=== PATIENT | male | born 1990 | race Hispanic/Latino ===

== ENCOUNTER 2019-01-19 08:35 | Emergency (ER) | payer SELFPAY ==
--- NOTE | 2019-01-19 09:17 | ER ---
Nurse's Notes [facility] Name: Esequiel Chao Age: 28 yrs Sex: Male : 1990 Arrival Date: 01/19/2019 Time: 08:39 Bed 7 Private MD: Diagnosis: right sacroilitis;lower back pain Presentation: 01/19 08:49 Presenting complaint: Patient states: i slipped on a wet floor like i was going to fall tw2 but i caught myself and i guess i twisted wrong so since then my back has been hurting, 3 days now and its keeping me from sleeping. Transition of care: patient was not received from another setting of care. Onset of symptoms was January 19, 2019. Risk Assessment: Do you want to hurt yourself or someone else? Patient reports no desire to harm self or others. Initial Sepsis Screen: Does the patient meet any 2 criteria? No. Patient's initial sepsis screen is negative. Does the patient have a suspected source of infection? No. Patient's initial sepsis screen is negative. Care prior to arrival: None. 08:49 Method Of Arrival: Ambulatory tw2 08:49 Acuity: CHRISTINE 4 tw2 Triage Assessment: 08:51 General: Appears in no apparent distress. Behavior is calm, cooperative, appropriate tw2 for age. Pain: Complains of pain in back. Musculoskeletal: Range of motion: intact in all extremities. Historical: - Allergies: 08:52 No Known Allergies; tw2 - Home Meds: 08:52 None [Active]; tw2 - PMHx: 08:52 None; tw2 - PSHx: 08:52 None; tw2 - Immunization history:: Adult Immunizations. - Social history:: Smoking status: . - Ebola Screening: : Patient denies travel to an Ebola-affected area in the 21 days before illness onset. Screenin:52 Abuse screen: Denies threats or abuse. Nutritional screening: No deficits noted. tw2 Tuberculosis screening: No symptoms or risk factors identified. Fall Risk None identified. Assessment: 08:45 General: Appears in no apparent distress. Behavior is calm, cooperative, appropriate tw2 for age. Pain: Complains of pain in back. Neuro: Level of Consciousness is awake, alert, obeys commands, Oriented to person, place, time, situation. Cardiovascular: Patient's skin is warm and dry. Respiratory: Airway is patent Respiratory effort is even, unlabored, Respiratory pattern is regular, symmetrical. GI: No signs and/or symptoms were reported involving the gastrointestinal system. : No signs and/or symptoms were reported regarding the genitourinary system. EENT: No signs and/or symptoms were reported regarding the EENT system. Derm: No signs and/or symptoms reported regarding the dermatologic system. Musculoskeletal: Circulation, motion, and sensation intact. Range of motion: intact in all extremities, Reports pain in back. 09:01 Reassessment: provider at bedside at this time. tw2 09:25 Reassessment: Patient appears in no apparent distress at this time. Patient and/or sg family updated on plan of care and expected duration. Pain level reassessed. Patient is alert, oriented x 3, equal unlabored respirations, skin warm/dry/pink. pt reports feeling better, ambulatory to ER lobby with steady gait, pt discharge to home with medications. Vital Signs: 08:51 BP 120 / 80; Pulse 83; Resp 18; Temp 97.8(TE); Pulse Ox 100% on R/A; Weight 79.38 kg tw2 (M); Pain 10/10; ED Course: 08:39 Patient arrived in ED. rg4 08:45 Bed in low position. Call light in reach. Adult w/ patient. tw2 08:[address] MD is Attending Physician. ps1 08:49 Carmen Grossman, HARVEY is Primary Nurse. tw2 08:51 Triage completed. tw2 08:51 Arm band placed on. tw2 09:01 served as real estate closing coordinator for adjustment at this time. tw2 09:24 Patient did not have IV access during this emergency room visit. tw2 Administered Medications: No medications were administered Outcome: 09:17 Discharge ordered by . ps1 09:24 Discharged to home ambulatory, with significant other. tw2 09:24 Condition: stable 09:24 Discharge instructions given to patient, significant other, Instructed on discharge instructions, follow up and referral plans. no drinking with medication, no driving heavy equipment, medication usage, Demonstrated understanding of instructions, follow-up care, medications, Prescriptions given X 2. 09:24 Patient left the ED. sg Signatures: Дмитрий Dias RN RN Carmen Grossman RN RN tw2 Gerda Hearn rg4 Sime[address] MD MD ps1
--- NOTE | 2019-01-19 09:17 | EDPHYS ---
Physician Documentation [facility] Name: Esequiel Chao Age: 28 yrs Sex: Male : 1990 Arrival Date: 01/19/2019 Time: 08:39 Bed 7 Private MD: ED Physician Simeon Lane HPI: 01/19 09:09 This 28 yrs old Male presents to ER via Ambulatory with complaints of Back ps1 Pain. 09:09 patient states that he nearly fell but caught himself prior to falling. Since then he ps1 has had spasm localized to the right lumbar region. Pain rated as moderate and worse with movement, specifically flexion. Pain does not radiate. No fever, patient is not immunocompromised. No urinary retention or urge incontinence. No FND or weakness. No numbness or functional impairment. . Historical: - Allergies: 08:52 No Known Allergies; tw2 - Home Meds: 08:52 None [Active]; tw2 - PMHx: 08:52 None; tw2 - PSHx: 08:52 None; tw2 - Immunization history:: Adult Immunizations. - Social history:: Smoking status: . - Ebola Screening: : Patient denies travel to an Ebola-affected area in the 21 days before illness onset. ROS: 09:09 Constitutional: Negative for fever, chills, and weight loss, Eyes: Negative for injury, ps1 pain, redness, and discharge, Cardiovascular: Negative for chest pain, palpitations, and edema, Respiratory: Negative for shortness of breath, cough, wheezing, and pleuritic chest pain, Abdomen/GI: Negative for abdominal pain, nausea, vomiting, diarrhea, and constipation, MS/Extremity: Negative for injury and deformity, Skin: Negative for injury, rash, and discoloration, Neuro: Negative for headache, weakness, numbness, tingling, and seizure. 09:09 Back: Positive for of the right low back, paraspinal spasm. Exam: 09:09 Constitutional: This is a well developed, well nourished patient who is awake, alert, ps1 and in no acute distress. Head/Face: Normocephalic, atraumatic. Eyes: Pupils equal round and reactive to light, extra-ocular motions intact. Lids and lashes normal. Conjunctiva and sclera are non-icteric and not injected. Chest/axilla: Normal chest wall appearance and motion. Nontender with no deformity. No lesions are appreciated. Cardiovascular: Regular rate and rhythm. No gallops, murmurs, or rubs. Normal PMI, no JVD. No pulse deficits. Respiratory: Lungs have equal breath sounds bilaterally, clear to auscultation and percussion. No rales, rhonchi or wheezes noted. No increased work of breathing, no retractions or nasal flaring. MS/ Extremity: Pulses equal, no cyanosis. Neurovascular intact. Full, normal range of motion. Neuro: Awake and alert, GCS 15, oriented to person, place, time, and situation. Cranial nerves II-XII grossly intact. Sensory grossly intact. 09:09 Back: pain, that is moderate, ROM is decreased, with flexion, CVA tenderness, is absent, muscle spasm, is appreciated in the right mid back and right low back. Vital Signs: 08:51 BP 120 / 80; Pulse 83; Resp 18; Temp 97.8(TE); Pulse Ox 100% on R/A; Weight 79.38 kg tw2 (M); Pain 10/10; MDM: 09:09 Data reviewed: vital signs, nurses notes. Counseling: I had a detailed discussion with ps1 the patient and/or guardian regarding: the historical points, exam findings, and any diagnostic results supporting the discharge/admit diagnosis, to return to the emergency department if symptoms worsen or persist or if there are any questions or concerns that arise at home. Response to treatment: the patient's symptoms have markedly improved after treatment, and as a result, I will discharge patient. ED course: patient examined in prone and supine position. Right leg length discrepancy with anteriorly rotated hip. Compensatory changes of lumbar and thoracic spine. HVLA performed and patient had marked relief of his pain. Ambulatory and ROM improved after procedure. . 09:17 Patient medically screened. ps1 Administered Medications: No medications were administered Disposition: 01/19/19 09:17 Discharged to Home. Impression: right sacroilitis, lower back pain. - Condition is Stable. - Discharge Instructions: Back Pain, Adult. - Prescriptions for Anaprox DS 550 mg Oral Tablet - take 1 tablet by ORAL route every 12 hours As needed; 20 tablet. Robaxin 500 mg Oral Tablet - take 2 tablet by ORAL route every 6 hours As needed; 40 tablet. - Work release form, Family Work Release, Medication Reconciliation Form, Thank You Letter, Antibiotic Education, Prescription Opioid Use form. - Follow up: Emergency Department; When: As needed; Reason: Worsening of condition. Follow up: Private Physician; When: 7 - 10 days; Reason: Further diagnostic work-up, Recheck today's complaints, Continuance of care. - Problem is new. - Symptoms have improved. Signatures: Дмитрий Dias RN RN sg Carmen Grossman RN RN tw2 Simeon Lane MD MD ps1 Corrections: (The following items were deleted from the chart) 09:24 09:17 01/19/2019 09:17 Discharged to Home. Impression: right sacroilitis; lower back sg pain. Condition is Stable. Forms are Work release form, Family Work Release, Medication Reconciliation Form, Thank You Letter, Antibiotic Education, Prescription Opioid Use. Follow up: Emergency Department; When: As needed; Reason: Worsening of condition. Follow up: Private Physician; When: 7 - 10 days; Reason: Further diagnostic work-up, Recheck today's complaints, Continuance of care. Problem is new. Symptoms have improved. ps1
[2019-01-19 09:30] VITALS: BP 120/80; TEMP 97.8; O2SAT 100
== END 2019-01-19 09:24 | disposition home or self-care (01) ==
LOC: ER 08:35
DX: M46.1 Sacroiliitis, not elsewhere classified (principal)
CPT/HCPCS: 99282

== ENCOUNTER 2019-05-16 10:23 | Emergency (ER) | payer BC ==
[2019-05-16 11:14] LABS: Absolute Lymphocytes (CBC) 1.8 K/uL (0.7-4.9); Basophils % 0.8 % (0-1.3); Hematocrit 40.4 % (39.6-49.0); Lymphocytes % 32.7 % (15.3-44.8); RBC Red Blood Cell Count 4.51 M/uL (4.33-5.43)
[2019-05-16 11:35] LABS: ALT/SGPT 16 U/L (12-78); AST/SGOT 8 U/L (15-37); Albumin 3.8 g/dL (3.4-5.0); Alkaline Phosphatase 41 U/L (45-117); BUN Blood Urea Nitrogen 11 mg/dL (7-18); Bicarbonate 29 mmol/L (21-32); Bilirubin Direct 0.1 mg/dL (0-0.2); Bilirubin Total 0.4 mg/dL (0.2-1.0); Glucose Level 88 mg/dL (74-106); Lipase 107 U/L (73-393); Protein, Total 7.4 g/dL (6.4-8.2); Sodium Level 141 mmol/L (136-145)
[2019-05-16] MEDS ORDERED: ONDANSETRON 4 MG/2 ML VIAL ONE (11:36)
[2019-05-16] MEDS ORDERED: MORPHINE 4 MG/ML SYR ONE (11:36)
[2019-05-16] MEDS ORDERED: NA CHLORIDE 0.9% 1,000 ML ONE (11:37)
--- NOTE | 2019-05-16 11:50 | RAD REPORT ---
EXAM DESCRIPTION: CT - Abdomen Pelvis W Contrast - 05/16/2019 11:32 am CLINICAL HISTORY: ABD PAIN, pain with bowel movement COMPARISON: No comparisons TECHNIQUE: Biphasic, helical CT imaging of the abdomen and pelvis was performed following 100 ml non -ionic IV contrast. No oral contrast was given. All CT scans are performed using dose optimization technique as appropriate and may include automated exposure control or mA/KV adjustment according to patient size. FINDINGS: No suspicious findings in the lung bases. The liver, spleen, and pancreas show no suspicious findings. Gallbladder and biliary tree are also wi thout suspicious finding. Symmetric renal function is seen with no hydronephrosis or suspicious renal mass. No pyelonephritis o r acute parenchymal process. No bladder abnormalities. No adrenal abnormalities. Stomach and small bowel show no suspicious findings. No colon dilatation or wall thickening. Specific ally, no rectal wall abnormality seen. The perirectal and perianal soft tissue show no edema or stran ding. No perirectal abscess or edema of the perineum. No free air, free fluid or inflammatory stranding. No hernia, mass or bulky lymphadenopathy. No suspicious bony findings. IMPRESSION: Contrast enhanced CT abdomen and pelvis showing no significant or suspicious finding. Specifically, no abnormality in the perianal or perirectal regions as an etiology for painful bowel m ovement.
--- NOTE | 2019-05-16 12:03 | EDPHYS ---
Physician Documentation [facility] Name: Esequiel Chao Age: 28 yrs Sex: Male : 1990 Arrival Date: 05/16/2019 Time: 10:24 Bed 28 Private MD: VICENTE Physician Adrian Jones HPI: 05/15 10:59 This 28 yrs old Male presents to ER via Ambulatory with complaints of pm1 Abdominal Pain. 10:59 The patient presents with abdominal pain in the left upper quadrant. Onset: The pm1 symptoms/episode began/occurred 2 week(s) ago. The symptoms do not radiate. Associated signs and symptoms: Pertinent positives: blood in stools, Pertinent negatives: nausea, vomiting, and diarrhea, chest pain, constipation, dysuria, fever, headache, shortness of breath. The symptoms are described as sharp. Modifying factors: The symptoms are alleviated by nothing, the symptoms are aggravated by food, bowel movement. Severity of pain: in the emergency department the pain is actually worse. The patient has been recently seen by a physician: the patient's primary care provider, same complaint 1 week ago and was referred to GI. Historical: - Allergies: 11:09 No Known Allergies; ss - Immunization history:: Adult Immunizations up to date. ROS: 11:13 Constitutional: Negative for fever, chills, and weight loss, Cardiovascular: Negative pm1 for chest pain, palpitations, and edema, Respiratory: Negative for shortness of breath, cough, wheezing, and pleuritic chest pain. 11:13 Back: Negative for injury and pain, MS/Extremity: Negative for injury and deformity, Skin: Negative for injury, rash, and discoloration, Neuro: Negative for headache, weakness, numbness, tingling, and seizure. 11:13 Abdomen/GI: Positive for abdominal pain, rectal pain, rectal bleeding, Negative for nausea, vomiting, and diarrhea. Exam: 11:13 Constitutional: This is a well developed, well nourished patient who is awake, alert, pm1 and in no acute distress. Head/Face: Normocephalic, atraumatic. Chest/axilla: Normal chest wall appearance and motion. Nontender with no deformity. No lesions are appreciated. Cardiovascular: Regular rate and rhythm with a normal S1 and S2. No gallops, murmurs, or rubs. No pulse deficits. Respiratory: Lungs have equal breath sounds bilaterally, clear to auscultation and percussion. No rales, rhonchi or wheezes noted. No increased work of breathing, no retractions or nasal flaring. Abdomen/GI: Soft, non-tender, with normal bowel sounds. No distension or tympany. No guarding or rebound. No evidence of tenderness throughout. Back: No spinal tenderness. No costovertebral tenderness. Full range of motion. MS/ Extremity: Pulses equal, no cyanosis. Neurovascular intact. Full, normal range of motion. 11:13 Abdomen/GI: Rectal exam: the exam is deferred, Patient refused. Reports painful with exam by PCP one week ago for the same complaint. 11:13 Neuro: Orientation: is normal, Motor: is normal, moves all fours, Gait: is steady, at a normal pace, without difficulty. Vital Signs: 10:31 BP 122 / 80; Pulse 74; Resp 18; Temp 97.2(TE); Pulse Ox 100% on R/A; Weight 81.65 kg; ss Height 5 ft. 10 in. (177.80 cm); Pain 10/10; 10:31 Body Mass Index 25.83 (81.65 kg, 177.80 cm) ss MDM: 10:35 Patient medically screened. pm1 11:15 Data reviewed: vital signs. Data interpreted: Pulse oximetry: on room air is 100 %. pm1 Interpretation: normal. 12:01 Counseling: I had a detailed discussion with the patient and/or guardian regarding: the pm1 historical points, exam findings, and any diagnostic results supporting the discharge/admit diagnosis, lab results, radiology results, the need for outpatient follow up, to return to the emergency department if symptoms worsen or persist or if there are any questions or concerns that arise at home. 05/15 10:44 Order name: Basic Metabolic Panel; Complete Time: 11:38 pm1 05/15 10:44 Order name: CBC with Diff; Complete Time: 11:18 pm1 05/15 10:44 Order name: Creatinine for Radiology; Complete Time: 11:38 pm1 05/15 10:44 Order name: Hepatic Function; Complete Time: 11:38 pm1 05/15 10:44 Order name: Lipase; Complete Time: 11:38 pm1 05/15 11:58 Order name: Urine Dipstick--Ancillary (enter results); Complete Time: 12:30 eb 05/15 10:44 Order name: IV Saline Lock; Complete Time: 11:40 pm1 05/15 10:44 Order name: Labs collected and sent; Complete Time: 11:40 pm1 05/15 10:44 Order name: CT Abd/Pelvis - IV Contrast Only; Complete Time: 11:53 pm1 05/15 10:44 Order name: Urine Dipstick-Ancillary (obtain specimen); Complete Time: 11:40 pm1 Administered Medications: 11:38 Drug: Zofran (Ondansetron) 4 mg Route: IVP; Site: left antecubital; ss 12:00 Follow up: Response: No adverse reaction ss 11:39 Drug: NS 0.9% 1000 ml Route: IV; Rate: 1000 ml; Site: left antecubital; ss 11:40 Drug: morphine 4 mg Route: IVP; Site: left antecubital; ss 12:00 Follow up: Response: No adverse reaction; Pain is decreased ss Disposition: 05/16/19 12:02 Discharged to Home. Impression: Unspecified abdominal pain. - Condition is Stable. - Discharge Instructions: Abdominal Pain, Adult. - Prescriptions for Bentyl 20 mg Oral Tablet - take 1 tablet by ORAL route every 6 hours As needed; 20 tablet. Pepcid 20 mg Oral Tablet - take 1 tablet by ORAL route every 12 hours for 10 days; 20 tablet. - Work release form, Medication Reconciliation Form, Thank You Letter, Antibiotic Education, Prescription Opioid Use form. - Follow up: Emergency Department; When: As needed; Reason: Worsening of condition. Follow up: Private Physician; When: 2 - 3 days; Reason: Recheck today's complaints, Continuance of care, Re-evaluation by your physician. - Problem is new. - Symptoms have improved. Addendum: 05/18/2019 09:05 Co-signature as Attending Physician, Adrian Jones MD I agree with the assessment and c mcneill plan of care. Signatures: Dispatcher [employer] Adrian Mendez MD MD cha Smirch, Shelby, RN RN ss Philip Mayes, COMMUNITY ADMINISTRATOR COMMUNITY ADMINISTRATOR pm1 Corrections: (The following items were deleted from the chart) 05/15 12:45 12:02 05/16/2019 12:02 Discharged to Home. Impression: Unspecified abdominal pain. ss Condition is Stable. Forms are Medication Reconciliation Form, Thank You Letter, Antibiotic Education, Prescription Opioid Use. Follow up: Emergency Department; When: As needed; Reason: Worsening of condition. Follow up: Private Physician; When: 2 - 3 days; Reason: Recheck today's complaints, Continuance of care, Re-evaluation by your physician. Problem is new. Symptoms have improved. pm1
--- NOTE | 2019-05-16 12:03 | ER ---
Nurse's Notes [facility] Name: Esequiel Chao Age: 28 yrs Sex: Male : 1990 Arrival Date: 05/16/2019 Time: 10:24 Bed 28 Private MD: Diagnosis: Unspecified abdominal pain Presentation: 05/15 10:31 Chief complaint: Patient states: pain with bowel movement started 2 weeks ago. Pt ss doesn't want to eat and hasn't eaten much because he doesn't want to have a BM. Pt appears to be pale. denies fever, nausea, or vomiting. Coronavirus screen: The patient has NOT traveled to a country currently being monitored by the [facility] within the last 14 days. Proceed with normal triage procedures. The patient has NOT had contact with any known and/or suspected case of coronavirus. Proceed with normal triage procedures. Ebola Screen: Patient negative for fever greater than or equal to 101.5 degrees Fahrenheit, and additional compatible Ebola Virus Disease symptoms Patient denies exposure to infectious person. Patient denies travel to an Ebola-affected area in the 21 days before illness onset. No symptoms or risks identified at this time. Initial Sepsis Screen: Does the patient meet any 2 criteria? No. Patient's initial sepsis screen is negative. Does the patient have a suspected source of infection? No. Patient's initial sepsis screen is negative. Risk Assessment: Do you want to hurt yourself or someone else? Patient reports no desire to harm self or others. Note pt reports 16 pound weight loss in 2 weeks. 10:31 Method Of Arrival: Ambulatory ss 10:31 Acuity: CHRISTINE 3 ss Historical: - Allergies: 11:09 No Known Allergies; ss - Immunization history:: Adult Immunizations up to date. Screenin:10 Abuse screen: Denies threats or abuse. Denies injuries from another. Nutritional ss screening: No deficits noted. Tuberculosis screening: Never had TB. Fall Risk None identified. Assessment: 10:45 General: Appears uncomfortable, Behavior is calm, cooperative. Pain: Complains of pain ss in abd Pain currently is 7 out of 10 on a pain scale. Quality of pain is described as aching. Pain: Aggravated by passing stool. Neuro: Level of Consciousness is awake, alert, obeys commands, Oriented to person, place, time, situation. Cardiovascular: Capillary refill < 3 seconds is brisk in bilateral fingers Patient's skin is warm and dry. Respiratory: Airway is patent Respiratory effort is even, unlabored, Respiratory pattern is regular, symmetrical, Denies cough. GI: Bowel sounds present X 4 quads. Abd is soft X 4 quads Abdomen is tender to palpation X 4 quads. GI: Patient currently denies bloody stool, constipation, flatulence. : No signs and/or symptoms were reported regarding the genitourinary system. Derm: Skin is intact, is healthy with good turgor, Skin is dry. Musculoskeletal: Circulation, motion, and sensation intact. Range of motion: intact in all extremities, Swelling absent. Vital Signs: 10:31 BP 122 / 80; Pulse 74; Resp 18; Temp 97.2(TE); Pulse Ox 100% on R/A; Weight 81.65 kg; ss Height 5 ft. 10 in. (177.80 cm); Pain 10/10; 10:31 Body Mass Index 25.83 (81.65 kg, 177.80 cm) ss ED Course: 10:24 Patient arrived in ED. mr 10:34 Triage completed. ss 10:35 Philip Mayes, MELVIN is PHCP. pm1 10:35 Adrian Jones MD is Attending Physician. pm1 10:48 Marlena Roberts RN is Primary Nurse. ss 11:09 Arm band placed on right wrist. ss 11:10 Patient has correct armband on for positive identification. Bed in low position. Call ss light in reach. 11:10 Inserted saline lock: 22 gauge in left antecubital area, using aseptic technique. Blood ss collected. 11:32 CT Abd/Pelvis - IV Contrast Only In Process Unspecified. EDMS 12:43 No provider procedures requiring assistance completed. IV discontinued, intact, ss bleeding controlled, No redness/swelling at site. Pressure dressing applied. Administered Medications: 11:38 Drug: Zofran (Ondansetron) 4 mg Route: IVP; Site: left antecubital; ss 12:00 Follow up: Response: No adverse reaction ss 11:39 Drug: NS 0.9% 1000 ml Route: IV; Rate: 1000 ml; Site: left antecubital; ss 11:40 Drug: morphine 4 mg Route: IVP; Site: left antecubital; ss 12:00 Follow up: Response: No adverse reaction; Pain is decreased Outcome: 12:02 Discharge ordered by . pm1 12:43 Discharged to home ambulatory, with family. 12:43 Condition: improved 12:43 Discharge instructions given to patient, family, Instructed on discharge instructions, follow up and referral plans. medication usage, Demonstrated understanding of instructions, follow-up care, medications, Prescriptions given X 2. 12:45 Patient left the ED. Signatures: Dispatcher [employer] Iris Merlos Shelby, RN RN ss Philip Mayes, PBX INSTALLER PBX INSTALLER pm1
[2019-05-16 12:29] LABS: Urine Blood TRACE (NEG); Urine Glucose NEGATIVE (NEG); Urine Protein NEGATIVE (NEG); Urine pH 6.5 (5.0-7.0)
[2019-05-16 12:56] VITALS: BP 122/80; TEMP 97.2; O2SAT 100
== END 2019-05-16 12:45 | disposition home or self-care (01) ==
LOC: ER 10:23
DX: R10.12 Left upper quadrant pain (principal)
CPT/HCPCS: 85025; 80048; 36415; 80076; 81003; 83690; 74177; 96375; 96374; 99284; Q9967; J7030; J2405

== ENCOUNTER 2019-08-10 22:17 | Emergency (ER) | payer BC ==
[2019-08-10 23:21] LABS: Absolute Lymphocytes (CBC) 0.4 K/uL (0.7-4.9); Basophils % 0.2 % (0-1.3); Hematocrit 40.1 % (39.6-49.0); Lymphocytes % 3.6 % (15.3-44.8); MPV 9.2 fL (7.6-11.3); RBC Red Blood Cell Count 4.45 M/uL (4.33-5.43)
[2019-08-10] MEDS ORDERED: ONDANSETRON 4 MG/2 ML VIAL ONE (23:22)
[2019-08-10] MEDS ORDERED: DICYCLOMINE HCL 10 MG CAP ONE (23:22)
[2019-08-10] MEDS ORDERED: NA CHLORIDE 0.9% 1,000 ML ONE (23:22)
[2019-08-10] MEDS ORDERED: FAMOTIDINE 20 MG/2 ML VIAL IV ONE (23:23)
[2019-08-10 23:30] LABS: Albumin 3.7 g/dL (3.4-5.0); Bilirubin Direct 0.1 mg/dL (0-0.2); Bilirubin Total 0.5 mg/dL (0.2-1.0); Potassium 3.2 mmol/L (3.5-5.1); Protein, Total 7.4 g/dL (6.4-8.2)
[2019-08-10 23:43] LABS: Urine Specific Gravity >1.030 (1.005-1.030)
[2019-08-10 23:44] LABS: Urine Blood 1+ (NEG); Urine Glucose NEGATIVE (NEG); Urine Protein 2+ (NEG)
[2019-08-11 00:20] LABS: Urine Amorphous Sediment 4+ /HPF (NONE SEEN); Urine Bacteria <20 /HPF (NONE SEEN); Urine Culture Reflex Order NOT NEEDED; Urine RBC NONE SEEN /HPF (NONE SEEN)
[2019-08-11 00:28] LABS: Blood Morphology Comment NOT SEEN (NOT SEEN); Platelet Estimate ADEQ
[2019-08-11] MEDS ORDERED: POTASSIUM 25 MEQ EFFERV TAB ONE (01:12)
[2019-08-11] MEDS ORDERED: CIPROFLOXACIN HCL 500 MG TAB ONE (01:12)
[2019-08-11] MEDS ORDERED: METRONIDAZOLE 500mg IVPB 500 MG/100 ML BAG IV ONE (01:12)
--- NOTE | 2019-08-11 01:21 | ER ---
Nurse's Notes [facility] Name: Esequiel Chao Age: 29 yrs Sex: Male : 1990 Arrival Date: 08/10/2019 Time: 22:20 Bed 28 Private MD: Diagnosis: Infectious gastroenteritis and colitis, unspecified Presentation: 08/09 22:30 Chief complaint: Patient states: I have had nausea, vomiting and diarrhea since tl1 yesterday. I can't hold anything down and my back hurts. Coronavirus screen: Proceed with normal triage. Patient denies a cough. Patient denies shortness of breath or difficulty breathing. Patient denies measured and/or subjective temperature greater than 100.4F prior to today's visit. Patient denies travel on a cruise ship or to a country the [facility] currently lists as an affected area. Patient denies contact with known and/or suspected case of COVID-19. Ebola Screen: Patient negative for fever greater than or equal to 101.5 degrees Fahrenheit, and additional compatible Ebola Virus Disease symptoms Patient denies exposure to infectious person. Patient denies travel to an Ebola-affected area in the 21 days before illness onset. Initial Sepsis Screen: Does the patient meet any 2 criteria? HR > 90 bpm. Does the patient have a suspected source of infection? No. Patient's initial sepsis screen is negative. Risk Assessment: Do you want to hurt yourself or someone else? Patient reports no desire to harm self or others. Onset of symptoms was August 10, 2019. 22:30 Method Of Arrival: Ambulatory tl1 22:30 Acuity: CHRISTINE 3 tl1 Historical: - Allergies: 22:35 No Known Allergies; tl1 - Home Meds: 22:35 None [Active]; tl1 - PMHx: 22:35 None; tl1 - PSHx: 22:35 None; tl1 - Immunization history:: Adult Immunizations up to date. - Social history:: Smoking status: Patient denies any tobacco usage or history of. Patient uses street drugs, marijuana. Screenin:48 Abuse screen: Denies threats or abuse. Nutritional screening: No deficits noted. jv1 Tuberculosis screening: No symptoms or risk factors identified. Fall Risk None identified. Assessment: 22:30 General: Appears in no apparent distress. well groomed, well developed, Behavior is jv1 calm, cooperative, appropriate for age. Pain: Complains of pain in abdomen and lumbar area Pain does not radiate. Pain currently is 7 out of 10 on a pain scale. Quality of pain is described as aching. Neuro: Level of Consciousness is awake, alert, obeys commands, Oriented to person, place, time, situation, Rn Er are equal bilaterally Moves all extremities. Cardiovascular: Denies chest pain, Heart tones S1 S2 present Capillary refill < 3 seconds is brisk. Respiratory: Airway is patent Respiratory effort is even, unlabored, Respiratory pattern is regular, symmetrical, Breath sounds are clear bilaterally. GI: Abdomen is round non-distended, Bowel sounds present X 4 quads. Abd is soft and non tender X 4 quads. Reports. : No signs and/or symptoms were reported regarding the genitourinary system. EENT: No signs and/or symptoms were reported regarding the EENT system. Derm: No signs and/or symptoms reported regarding the dermatologic system. Musculoskeletal: No signs and/or symptoms reported regarding the musculoskeletal system. 23:47 Reassessment: Patient appears in no apparent distress at this time. No changes from jv1 previously documented assessment. Patient and/or family updated on plan of care and expected duration. Pain level reassessed. Patient is alert, oriented x 3, equal unlabored respirations, skin warm/dry/pink. Patient states feeling better. Patient states symptoms have improved. family called, they provided the right code, family was updated.. 23:48 Reassessment: pt being taken for CT. jv1 08/10 00:00 Reassessment: pt back from CT. jv1 00:44 Reassessment: Patient appears in no apparent distress at this time. No changes from jv1 previously documented assessment. Patient and/or family updated on plan of care and expected duration. Pain level reassessed. Patient is alert, oriented x 3, equal unlabored respirations, skin warm/dry/pink. Patient states feeling better. Patient states symptoms have improved. 01:17 Reassessment: No changes from previously documented assessment. Patient and/or family jv1 updated on plan of care and expected duration. Pain level reassessed. Patient is alert, oriented x 3, equal unlabored respirations, skin warm/dry/pink. MD in the room with pt. Patient states feeling better. Patient states symptoms have improved. Vital Signs: 08/09 22:34 BP 112 / 72; Pulse 99; Resp 17; Temp 98.4; Pulse Ox 100% ; Weight 81.65 kg; Height 5 tl1 ft. 9 in. (175.26 cm); Pain 10/10; 23:30 BP 105 / 52; Pulse 82; Resp 18; Temp 98.1; Pulse Ox 100% ; Pain 5/10; jv1 08/10 00:30 BP 110 / 65; Pulse 88; Resp 18; Temp 98.2; Pulse Ox 100% on R/A; Pain 0/10; jv1 01:45 BP 115 / 65; Pulse 89; Resp 18; Temp 98.2; Pulse Ox 99% ; Pain 0/10; jv1 08/09 22:34 Body Mass Index 26.58 (81.65 kg, 175.26 cm) tl1 ED Course: 08/09 22:20 Patient arrived in ED. ds1 22:33 Adrian Tabor PA is PHCP. cp 22:33 [place] Castro MD is Attending Physician. cp 22:34 Triage completed. tl1 22:35 Arm band placed on right wrist. tl1 23:09 Inserted saline lock: 20 gauge in left antecubital area, using aseptic technique. Blood ar5 collected. 23:09 Urine collected: clean catch specimen, clear. ar5 23:48 Patient has correct armband on for positive identification. Call light in reach. Side jv1 rails up X2. 08/10 00:12 CT Abd/Pelvis - IV Contrast Only In Process Unspecified. EDMS 01:19 Richy Luz MD is Referral Physician. cp 01:54 No provider procedures requiring assistance completed. IV discontinued, intact, jv1 bleeding controlled, No redness/swelling at site. Pressure dressing applied. Administered Medications: 08/09 23:10 Drug: Bentyl 20 mg Route: PO; jv1 08/10 00:15 Follow up: Response: No adverse reaction jv1 08/09 23:10 Drug: NS 0.9% 1000 ml Route: IV; Rate: 1 bolus; Site: left antecubital; jv1 08/10 01:00 Follow up: Response: No adverse reaction; IV Status: Completed infusion jv1 08/09 23:12 Drug: Zofran (Ondansetron) 4 mg {Note: infused over 2 mins.} Route: IVP; Site: left jv1 antecubital; 08/10 00:15 Follow up: Response: No adverse reaction; Nausea is decreased jv1 08/09 23:43 Drug: Pepcid 20 mg Route: IVP; Site: left antecubital; jv1 08/10 00:15 Follow up: Response: No adverse reaction jv1 01:11 Drug: metroNIDAZOLE 500 mg Volume: 100 ml; Route: IVPB; Infused Over: 30 mins; Site: jv1 left antecubital; 01:45 Follow up: Response: No adverse reaction; IV Status: Completed infusion jv1 01:11 Drug: Potassium Effervescent Tablet 50 mEq Route: PO; jv1 01:41 Follow up: Response: No adverse reaction jv1 01:11 Drug: Cipro 500 mg Route: PO; jv1 01:40 Follow up: Response: No adverse reaction jv1 Outcome: 01:20 Discharge ordered by MD. cp 01:54 Discharged to home ambulatory. jv1 01:54 Condition: stable 01:54 Discharge instructions given to patient, Instructed on discharge instructions, follow up and referral plans. medication usage, Demonstrated understanding of instructions, follow-up care, medications, Prescriptions given X 4. 01:58 Patient left the ED. jv1 Signatures: Dispatcher [employer] EDGA Nat Rodriguez ds1 Nirmala Ruff RN RN tl1 Adrian Tabor PA PA Christine Snell RN RN jv1 Liliana Michelle ar5 Corrections: (The following items were deleted from the chart) 00:01 08/09 23:52 Reassessment: pt being taken for CT jv1 jv1
--- NOTE | 2019-08-11 01:21 | EDPHYS ---
Physician Documentation [facility] Name: Esequiel Chao Age: 29 yrs Sex: Male : 1990 Arrival Date: 08/10/2019 Time: 22:20 Bed 28 Private MD: ED Physician [place] HPI: 08/09 23:05 This 29 yrs old Male presents to ER via Ambulatory with complaints of cp Nausea/Vomiting. 23:05 The patient presents to the emergency department with nausea, that is moderate, cp vomiting, that is intermittent, diarrhea, that is intermittent, abdominal pain, of the abdomen diffusely. 23:05 Onset: The symptoms/episode began/occurred yesterday. Possible causes: unknown. cp Associated signs and symptoms: Pertinent negatives: constipation, fever, GI bleeding. Severity of symptoms: in the emergency department the symptoms are unchanged despite home interventions. Historical: - Allergies: 22:35 No Known Allergies; tl1 - Home Meds: 22:35 None [Active]; tl1 - PMHx: 22:35 None; tl1 - PSHx: 22:35 None; tl1 - Immunization history:: Adult Immunizations up to date. - Social history:: Smoking status: Patient denies any tobacco usage or history of. Patient uses street drugs, marijuana. ROS: 23:15 Eyes: Negative for injury, pain, redness, and discharge. cp 23:15 Constitutional: Negative for body aches, chills, fever, poor PO intake. 23:15 ENT: Negative for ear pain, sore throat, difficulty swallowing, difficulty handling secretions. 23:15 Cardiovascular: Positive for chest pain. 23:15 Respiratory: Negative for cough, shortness of breath, wheezing. 23:15 Abdomen/GI: Positive for abdominal pain, nausea, vomiting, and diarrhea, anorexia, Negative for hematemesis, black/tarry stool, rectal bleeding. 23:15 Back: Positive for pain at rest, of the lumbar area. 23:15 : Negative for urinary symptoms, difficulty urinating, bladder incontinence, testicular pain 23:15 Skin: Negative for rash. 23:15 Neuro: Negative for altered mental status, headache, weakness. 23:15 All other systems are negative. Exam: 23:17 Head/Face: Normocephalic, atraumatic. cp 23:17 Constitutional: The patient appears in no acute distress, alert, awake, non-toxic, well developed, well nourished. 23:17 Eyes: Periorbital structures: appear normal, Conjunctiva: normal, no exudate, no injection, Sclera: no appreciated abnormality, Lids and lashes: appear normal, bilaterally. 23:17 ENT: External ear(s): are unremarkable, Nose: is normal, Mouth: is normal, Posterior pharynx: is normal, airway is patent. 23:17 Chest/axilla: Inspection: normal, Palpation: is normal, no crepitus, no tenderness. 23:17 Cardiovascular: Rate: normal, Rhythm: regular. 23:17 Respiratory: the patient does not display signs of respiratory distress, Respirations: normal, no use of accessory muscles, no retractions, labored breathing, is not present, Breath sounds: are clear throughout, no decreased breath sounds, no stridor, no wheezing. 23:17 Abdomen/GI: Inspection: abdomen appears normal, Bowel sounds: active, all quadrants, Palpation: soft, in all quadrants, mild abdominal tenderness, in all quadrants, rebound tenderness, is not appreciated, voluntary guarding, is not appreciated, involuntary guarding, is not appreciated. 23:17 Back: pain, that is mild, of the lumbar area, ROM is normal. 23:17 Skin: no rash present. 23:17 Neuro: Orientation: to person, place \T\ time. Mentation: is normal. Vital Signs: 22:34 BP 112 / 72; Pulse 99; Resp 17; Temp 98.4; Pulse Ox 100% ; Weight 81.65 kg; Height 5 tl1 ft. 9 in. (175.26 cm); Pain 10/10; 23:30 BP 105 / 52; Pulse 82; Resp 18; Temp 98.1; Pulse Ox 100% ; Pain 5/10; jv1 08/10 00:30 BP 110 / 65; Pulse 88; Resp 18; Temp 98.2; Pulse Ox 100% on R/A; Pain 0/10; jv1 01:45 BP 115 / 65; Pulse 89; Resp 18; Temp 98.2; Pulse Ox 99% ; Pain 0/10; jv1 08/09 22:34 Body Mass Index 26.58 (81.65 kg, 175.26 cm) tl1 MDM: 08/09 22:44 Patient medically screened. 08/10 00:00 Differential diagnosis: gastritis, cholecystitis, pancreatitis, viral gastroenteritis, cp gastroenteritis, colitis. 01:15 Data reviewed: vital signs, nurses notes, lab test result(s), radiologic studies, CT cp scan, and as a result, I will discharge patient. 01:20 Counseling: I had a detailed discussion with the patient and/or guardian regarding: the cp historical points, exam findings, and any diagnostic results supporting the discharge/admit diagnosis, lab results, radiology results, the need for outpatient follow up, a car sales representative, to return to the emergency department if symptoms worsen or persist or if there are any questions or concerns that arise at home. 01:20 Response to treatment: the patient's symptoms have markedly improved after treatment, cp VSS. Pain and nausea improved and no vomiting observed while in ED. Will discharge to home for continued monitoring. 08/09 22:45 Order name: Basic Metabolic Panel; Complete Time: 00:27 08/10 00:27 Interpretation: Normal except: K 3.2; GLUC 175; GFR 84. 08/09 22:45 Order name: CBC with Diff; Complete Time: 00:58 08/10 00:28 Interpretation: Normal except: WBC 11.7; JEANNINE% 91.2; LYM% 3.6; NEUT A 10.7. 08/09 22:45 Order name: Hepatic Function; Complete Time: 00:27 08/10 00:27 Interpretation: Normal except: AST 11; GLOB 3.7; A/G 1.0. 08/09 22:45 Order name: Lipase; Complete Time: 00:27 08/10 00:27 Interpretation: Abnormal: LIP 58. 08/09 22:45 Order name: Urine Microscopic Only; Complete Time: 00:27 08/09 23:09 Order name: Urine Dipstick--Ancillary (enter results) mn 08/09 23:05 Order name: CT Abd/Pelvis - IV Contrast Only 08/09 23:10 Order name: Urine Dipstick-Ancillary; Complete Time: 00:27 EDMS 08/09 23:25 Order name: Manual Differential; Complete Time: 00:58 EDMS 08/10 00:58 Interpretation: Reviewed. 08/09 22:45 Order name: IV Saline Lock; Complete Time: 23:09 08/09 22:45 Order name: Labs collected and sent; Complete Time: 23:09 cp 08/09 22:45 Order name: Urine Dipstick-Ancillary (obtain specimen); Complete Time: 23:09 cp Administered Medications: 08/09 23:10 Drug: Bentyl 20 mg Route: PO; jv1 08/10 00:15 Follow up: Response: No adverse reaction v1 08/09 23:10 Drug: NS 0.9% 1000 ml Route: IV; Rate: 1 bolus; Site: left antecubital; jv1 08/10 01:00 Follow up: Response: No adverse reaction; IV Status: Completed infusion jv1 08/09 23:12 Drug: Zofran (Ondansetron) 4 mg {Note: infused over 2 mins.} Route: IVP; Site: left [facility] antecubital; 08/10 00:15 Follow up: Response: No adverse reaction; Nausea is decreased v1 08/09 23:43 Drug: Pepcid 20 mg Route: IVP; Site: left antecubital; jv1 08/10 00:15 Follow up: Response: No adverse reaction jv1 01:11 Drug: metroNIDAZOLE 500 mg Volume: 100 ml; Route: IVPB; Infused Over: 30 mins; Site: [facility] left antecubital; 01:45 Follow up: Response: No adverse reaction; IV Status: Completed infusion jv1 01:11 Drug: Potassium Effervescent Tablet 50 mEq Route: PO; jv1 01:41 Follow up: Response: No adverse reaction jv1 01:11 Drug: Cipro 500 mg Route: PO; jv1 01:40 Follow up: Response: No adverse reaction jv1 Disposition: 05:45 Co-signature as Attending Physician, [place] MD. [email or web address] Disposition: 08/11/19 01:20 Discharged to Home. Impression: Infectious gastroenteritis and colitis, unspecified. - Condition is Stable. - Discharge Instructions: Diarrhea, Adult, Nausea and Vomiting, Adult, Colitis. - Prescriptions for Zofran 4 mg Oral Tablet - take 1 tablet by ORAL route every 12 hours As needed; 20 tablet. Metronidazole 500 mg Oral Tablet - take 1 tablet by ORAL route every 8 hours; 30 tablet. Bentyl 20 mg Oral Tablet - take 1 tablet by ORAL route every 6 hours As needed; 30 tablet. Cipro 500 mg Oral Tablet - take 1 tablet by ORAL route every 12 hours for 10 days; 20 tablet. - Medication Reconciliation Form, Thank You Letter, Antibiotic Education, Prescription Opioid Use form. - Follow up: Richy Luz MD; When: 2 - 3 days; Reason: Recheck today's complaints. - Problem is new. - Symptoms have improved. Signatures: Dispatcher [employer] EDMS Nirmala Ruff RN RN tl1 Adrian Tabor PA PA cp Christine Salmeron RN RN jv1 [place] MD MD [email or web address] Corrections: (The following items were deleted from the chart) 01:58 01:20 08/11/2019 01:20 Discharged to Home. Impression: Infectious gastroenteritis and jv1 colitis, unspecified. Condition is Stable. Forms are Medication Reconciliation Form, Thank You Letter, Antibiotic Education, Prescription Opioid Use. Follow up: Richy Luz; When: 2 - 3 days; Reason: Recheck today's complaints. Problem is new. Symptoms have improved. cp
[2019-08-11 02:14] VITALS: TEMP 98.2
[2019-08-11 02:16] VITALS: BP 115/65; O2SAT 99
--- NOTE | 2019-08-11 15:30 | RAD REPORT ---
EXAM DESCRIPTION: CT - Abdomen Pelvis W Contrast - 08/11/2019 3:26 am CLINICAL HISTORY: Diarrhea;Nausea / vomiting;Abd pain COMPARISON: 05/16/2019 TECHNIQUE: CT of the abdomen and pelvis performed following IV administration of iodinated contrast. FINDINGS: Lung Bases: The visualized lung bases are clear. Bones: No destructive bone lesions identified. Abdomen: Liver: The liver has normal size and density. No intrahepatic biliary dilatation. Gallbladder: No calcified gallstones. Spleen, Pancreas, and Adrenal Glands: The spleen, pancreas, and adrenal glands are unremarkable. Kidneys: No hydronephrosis or obstructing calculus. Vasculature: The aorta and IVC have normal caliber and position. The portal vein is patent. The pro ximal visceral and renal arteries are patent. Stomach: The stomach and duodenum have normal course. Other: No free intraperitoneal air. No free fluid or lymphadenopathy. Pelvis: Bladder: Urinary bladder is unremarkable. Bowel: No dilated loops of large or small bowel. Diffuse wall thickening of the colon. Appendix: Normal appendix. Pelvis: Prostate is not enlarged. IMPRESSION: 1. Findings compatible with pancolitis. This may be of infectious or inflammatory etiology. This exam was performed according to our departmental dose-optimization program, which includes autom ated exposure control, adjustment of the mA and/or kV according to patient size and/or use of iterati ve reconstruction technique. Electronically signed by: Ty Woods 08/11/2019 12:22 AM CDT Due to temporary technical issues with the PACS/Fluency reporting system, reports are being signed by the in house radiologist without review as a courtesy to ensure prompt reporting. The interpreting r adiologist is fully responsible for the content of the report.
== END 2019-08-11 01:58 | disposition home or self-care (01) ==
LOC: ER 22:17
DX: A09 Infectious gastroenteritis and colitis, unspecified (principal)
CPT/HCPCS: 96365; 96361; 85025; 80048; 36415; 80076; 83690; 74177; 96375; 99284; Q9967; J7030; J2405; 81003; 81015

== ENCOUNTER 2021-08-30 16:15 | Emergency (ER) | payer BC ==
--- NOTE | 2021-08-30 18:39 | ER ---
Nurse's Notes [facility] Name: Esequiel Chao Age: 31 yrs Sex: Male : 1990 Arrival Date: 08/30/2021 Time: 16:18 Bed 12 Private MD: Diagnosis: Coronavirus infection, unspecified Presentation: 08/30 16:21 Chief complaint: Patient states: that yesterday he started having body aches, fever, ap3 chills, headache and vomiting. Coronavirus screen: Client presents with at least one sign or symptom that may indicate coronavirus-19. Ebola Screen: No symptoms or risks identified at this time. Initial Sepsis Screen: Does the patient meet any 2 criteria? No. Patient's initial sepsis screen is negative. Does the patient have a suspected source of infection? No. Patient's initial sepsis screen is negative. Risk Assessment: Do you want to hurt yourself or someone else? Patient reports no desire to harm self or others. Onset of symptoms was August 29, 2021. 16:21 Method Of Arrival: Ambulatory ap3 16:24 Acuity: CHRISTINE 4 ap3 Triage Assessment: 16:23 General: Appears uncomfortable, Behavior is cooperative. Pain: Complains of pain in ap3 generalized body aches. Neuro: Level of Consciousness is awake, alert, obeys commands, Oriented to person, place, time, situation, Appropriate for age Gait is steady. Cardiovascular: Patient's skin is warm and dry. Respiratory: Reports cough that is Airway is patent Respiratory effort is even, unlabored. GI: Reports nausea, vomiting. Historical: - Allergies: 16:23 No Known Allergies; ap3 - Home Meds: 16:23 None [Active]; ap3 - PMHx: 16:23 None; ap3 - Immunization history:: Client reports having NOT received the Covid vaccine. - Social history:: Smoking status: Patient denies any tobacco usage or history of. Screenin:24 Abuse screen: Denies threats or abuse. Nutritional screening: No deficits noted. ap3 Tuberculosis screening: No symptoms or risk factors identified. Fall Risk None identified. Assessment: 16:46 General: Appears in no apparent distress. Cardiovascular: No deficits noted. bh1 Respiratory: No deficits noted. Vital Signs: 16:21 BP 118 / 93; Pulse 115; Resp 19; Temp 97.6; Pulse Ox 100% ; Weight 90.72 kg; Height 5 ap3 ft. 10 in. (177.80 cm); 18:19 BP 122 / 105; Pulse 108; Resp 20; Temp 98.3; Pulse Ox 100% on R/A; bh1 18:41 BP 106 / 77; Pulse 106; Resp 18; Temp 97.3(O); Pulse Ox 100% on R/A; bh1 16:21 Body Mass Index 28.70 (90.72 kg, 177.80 cm) ap3 ED Course: 16:18 Patient arrived in ED. as 16:23 Robyn Ibarra FNP-C is [facility]. kb 16:23 Adrian Jones MD is Attending Physician. kb 16:24 Triage completed. ap3 16:24 Arm band placed on right wrist. ap3 16:43 COVID-19 SARS RT PCR (Document "Date of Onset" if Symptomatic) Sent. ap3 16:43 Strep Sent. ap3 16:43 Flu Sent. ap3 16:46 Deyanira Langley, RN is Primary Nurse. 1 16:46 No apparent distress. Awaiting lab results. bh1 16:46 Patient has correct armband on for positive identification. Pulse ox on. NIBP on. bh1 16:46 No provider procedures requiring assistance completed. Patient did not have IV access bh1 during this emergency room visit. 17:23 No apparent distress. Resting quietly. Awaiting lab results. bh1 18:20 No apparent distress. Resting quietly. Awaiting lab results. 1 Administered Medications: No medications were administered Medication: 16:46 VIS not applicable for this client. [facility] Outcome: 18:39 Discharge ordered by . kb 18:46 Discharged to home ambulatory. 1 18:46 Condition: good 18:46 Discharge instructions given to patient, Instructed on discharge instructions, follow up and referral plans. Demonstrated understanding of instructions, follow-up care. 18:46 Patient left the ED. 1 Signatures: Robyn Ibarra FNP-C FNP-[place] Amanda RN RN 3 Deyanira Langley, HARVEY RN 1 Corrections: (The following items were deleted from the chart) 18:42 18:19 BP 122 / 105; Pulse 18bpm; Resp 20bpm; Pulse Ox 100% RA; Temp 98.3F; bh1 bh1
--- NOTE | 2021-08-30 18:39 | EDPHYS ---
Physician Documentation [facility] Name: Esequiel Chao Age: 31 yrs Sex: Male : 1990 Arrival Date: 08/30/2021 Time: 16:18 Bed 12 Private MD: ED Physician Adrian Jones HPI: 08/31 01:06 This 31 yrs old Male presents to ER via Ambulatory with complaints of Fever. kb 01:06 The patient has not experienced similar symptoms in the past. The patient has not kb recently seen a physician. 01:06 The patient or guardian reports cough, that is intermittent, described as mild, flu kb symptoms, myalgias. Onset: The symptoms/episode began/occurred 2 day(s) ago. Severity of symptoms: At their worst the symptoms were moderate, in the emergency department the symptoms are unchanged. Modifying factors: The symptoms are alleviated by nothing, the symptoms are aggravated by nothing. Associated signs and symptoms: Pertinent positives: fever, nausea, vomiting. Historical: - Allergies: 08/30 16:23 No Known Allergies; ap3 - Home Meds: 16:23 None [Active]; ap3 - PMHx: 16:23 None; ap3 - Immunization history:: Client reports having NOT received the Covid vaccine. - Social history:: Smoking status: Patient denies any tobacco usage or history of. ROS: 08/31 01:05 Cardiovascular: Negative for chest pain, palpitations, and edema. kb Constitutional: Positive for body aches, chills, fatigue, fever, malaise. Respiratory: Positive for cough. Abdomen/GI: Positive for nausea, vomiting. Neuro: Positive for headache. All other systems are negative. Exam: 01:05 Constitutional: This is a well developed, well nourished patient who is awake, alert, kb and in no acute distress. Head/Face: Normocephalic, atraumatic. ENT: Moist Mucous membranes Cardiovascular: Regular rate and rhythm with a normal S1 and S2. No gallops, murmurs, or rubs. No pulse deficits. Respiratory: Respirations even and unlabored. No increased work of breathing. Talking in full sentences Abdomen/GI: Soft, non-tender. No distention Skin: Warm, dry with normal turgor. Normal color. MS/ Extremity: Pulses equal, no cyanosis. Neurovascular intact. Full, normal range of motion. Neuro: Awake and alert, GCS 15, oriented to person, place, time, and situation. Moves all extremities. Normal gait. Psych: Awake, alert, with orientation to person, place and time. Behavior, mood, and affect are within normal limits. Vital Signs: 08/30 16:21 BP 118 / 93; Pulse 115; Resp 19; Temp 97.6; Pulse Ox 100% ; Weight 90.72 kg; Height 5 ap3 ft. 10 in. (177.80 cm); 18:19 BP 122 / 105; Pulse 108; Resp 20; Temp 98.3; Pulse Ox 100% on R/A; bh1 18:41 BP 106 / 77; Pulse 106; Resp 18; Temp 97.3(O); Pulse Ox 100% on R/A; bh1 16:21 Body Mass Index 28.70 (90.72 kg, 177.80 cm) ap3 MDM: 16:23 Patient medically screened. 08/31 01:06 Data reviewed: vital signs, nurses notes. Data interpreted: Pulse oximetry: on room air kb is 100 %. Interpretation: normal. Counseling: I had a detailed discussion with the patient and/or guardian regarding: the historical points, exam findings, and any diagnostic results supporting the discharge/admit diagnosis, lab results, the need for outpatient follow up, a family practitioner, to return to the emergency department if symptoms worsen or persist or if there are any questions or concerns that arise at home. 08/30 16:23 Order name: Flu; Complete Time: 17:18 kb 08/30 16:23 Order name: Strep; Complete Time: 16:58 kb 08/30 16:23 Order name: COVID-19 SARS RT PCR (Document "Date of Onset" if Symptomatic); Complete kb Time: 18:35 08/30 17:00 Order name: Throat Culture EDMS Administered Medications: No medications were administered Disposition Summary: 08/30/21 18:39 Discharge Ordered Location: Home kb Condition: Stable kb Diagnosis - Coronavirus infection, unspecified kb Followup: kb - With: Emergency Department - When: As needed - Reason: Worsening of condition Followup: kb - With: Private Physician - When: 2 - 3 days - Reason: Recheck today's complaints, Continuance of care, Re-evaluation by your physician Discharge Instructions: - Discharge Summary Sheet kb - Viral Respiratory Infection, [id number] kb - COVID-19 kb Forms: - Medication Reconciliation Form kb - Thank You Letter kb - Antibiotic Education kb - Prescription Opioid Use kb Signatures: Dispatcher [employer] Robyn Gloria, KARLEY-C Sendy Sanches, RN RN ap3
[2021-08-30 18:54] VITALS: O2SAT 100
[2021-08-30 19:00] VITALS: BP 106/77; TEMP 97.3
== END 2021-08-30 18:46 | disposition home or self-care (01) ==
LOC: ER 16:15
DX: U07.1 COVID-19 (principal)
CPT/HCPCS: 87070; 87081; 87804 ×2; U0003